=== PATIENT | female | born 1985 | race Caucasian/White ===

== ENCOUNTER 2019-07-13 01:13 | Inpatient (IN) | payer SELFPAY ==
[2019-07-13] MEDS ORDERED: XYLOCAINE 2% INFILTRATI ONE (02:17)
[2019-07-13] MEDS ORDERED: BRETHINE SUB-Q PRN (02:17)
--- NOTE | 2019-07-13 02:33 | History and Physical Report ---
History of Present Illness Date of examination: 07/13/19 Date of admission: 07/13/19 Chief complaint: Leaking of water. History of present illness: 34 year old presents complaining of leaking of pink fluid from vagina for past 5.5 hours. Patient denies falls or abdominal trauma. She denies recent IC. She reports contractions but denies constant abdominal pain. She reports active movement. She states fluid came with a gush and then continued to soak pads. No clear fluid, no green fluid. Patient received care at [facility] and records are available. LMP 10/13/18. EDC 07/20/19. significant for the following: low lying placenta (resolved per records), gestational thrombocytopenia, elevated 1 hour sugar test with one abnormal value on 3 hour OGTT, history of LEEP in January 2018. labs are as follows: O+, antibody screen negative, rubella immune, hepatitis B surface antigen negative, RPR nonreactive, HIV negative, + HPV on pap, quad screen negative, 1 hour sugar test 175, 3 hour OGTT with one abnormal value (90, 182, 144, 120), gonorrhea negative, chlamydia negative, GBS negative. Past History Past Medical History: no pertinent history Past Surgical History: no surgical history PARAMEDIC History: abnormal PAP smear. denies: chlamydia, gonorrhea, hepatitis B, hepatitis C, herpes, HIV, syphilis, trichomonas Family/Genetic History: diabetes Social history: lives with family, full code. denies: smoking, alcohol abuse, prescription drug abuse, IV drug use - Obstetrical History Expected Date of Delivery: 07/20/19 Actual Gestation: 39 Week(s) 0 Day(s) : 2 Para: 0 Hx # Term Pregnancies: 0 Number of Pregnancies: 0 Spontaneous Abortions: 0 Induced : 1 Number of Living Children: 0 Medications and Allergies Active Meds: Active Medications Ephedrine Sulfate (Ephedrine Sulfate) 10 mg IV Q2M PRN PRN Reason: Hypotension Oxytocin/Sodium Chloride (Pitocin/Ns 20 Unit/1000ml Drip) 20 units in 1,000 mls @ 125 mls/hr IV DIRECT RAMESH Lactated Ringer's (Lactated Ringers) 1,000 mls @ 125 mls/hr IV DIRECT RAMESH Lidocaine (Xylocaine 2%) 20 ml INFILTRATI ONCE ONE Stop: 07/13/19 02:18 Terbutaline Sulfate (Brethine) 0.25 mg SUB-Q ONCE PRN PRN Reason: Hyperstimulation/Hypertonicity Review of Systems All systems: negative (leaking of pink fluid from vagina, contractions) - Vital Signs Vital signs: Vital Signs Pulse BP 78 116/67 07/13/19 01:51 07/13/19 01:51 Temp Pulse Resp BP Pulse Ox 78 116/67 07/13/19 01:51 07/13/19 01:51 US report shows possible small separation of placenta, cephalic presentation, EFW 4363 grams. - Physical Exam Cardiovascular: Regular rate, Normal S1, Normal S2 Lungs: Positive: Clear to auscultation Abdomen: Positive: normal appearance. Negative: soft, distention, tenderness, guarding, rigidity Genitourinary (Female): Positive: normal external genitalia, normal perenium. Negative: perineal/vulvar lesions Vagina: Positive: other (SSE performed: positive pooling of pink to red fluid, positive nitrazine, positive fern) Uterus: Positive: enlarged (s>d). Negative: tender Anus/Rectum: Positive: normal perianal skin Extremities: Positive: normal, edema (mild pedal edema). Negative: tenderness - Obstetrical FHR: category 1 Uterine Contraction Monitor Mode: External Cervical Dilatation: 3 Cervical Effacement Percentage: 80 station: -3 Uterine Contraction Pattern: Irregular Uterine Contraction Intensity: Mild Results All other labs normal. Assessment and Plan A: at 39 weeks gestation. Spontaneous rupture of membranes with bloody fluid. GBS negative. History of low lying placenta. Possible small separation of placenta on US. EFW 4363 grams. P: Admit. Continuous EFM. Consult with Dr. Arriola. on his way in to deliver patient by section. Discussed POC with patient and family.
[2019-07-13] MEDS ORDERED: PITOCin/NS 20 UNIT/1000ML DRIP 20 UNITS/1,000 ML BAG IV SCH ×3 (03:00→07:00)
[2019-07-13] MEDS ORDERED: LACTATED RINGERS 1,000 ML IV SCH ×2 (03:00→04:00)
[2019-07-13] MEDS ORDERED: PEPCID IV ONE (03:29)
[2019-07-13] MEDS ORDERED: BICITRA PO ONE (03:29)
[2019-07-13] MEDS ORDERED: REGLAN IV ONE (03:29)
--- NOTE | 2019-07-13 03:52 | Ultrasound Report ---
ULTRASOUND OBSTETRIC LIMITED ULTRASOUND BIOPHYSICAL PROFILE INDICATION / CLINICAL INFORMATION: vaginal bleeding. COMPARISON: None available. FINDINGS: BREATHING MOVEMENT = 2 GROSS BODY MOVEMENT = 2 TONE = 2 QUALITATIVE AMNIOTIC FLUID VOLUME = 2 TOTAL BIOPHYSICAL SCORE = 8/8 AMNIOTIC FLUID INDEX (cm) = 12.2 PRESENTATION: Cephalic. HEART RATE (beats per minute): 143 ADDITIONAL FINDINGS: Placenta anterior, grade 3 without previa. Estimated gestational age based on BPD 39 weeks 5 days HC 40 weeks 6 days Femur length 38 weeks 3 days Estimated birthweight 4363 g IMPRESSION: 1. Biophysical Score = 8/8 Signer Name: Dioni Albright MD Signed: 07/13/2019 3:47 AM Workstation Name: [employer]
[2019-07-13] MEDS ORDERED: ANCEF/STERILE WATER 2 GM/20 ML 2 GM/20 ML SYRINGE IV NR (04:00)
[2019-07-13 04:01] LABS: Hematocrit 41.5 % (30.3-42.9); Hemoglobin 14.2 gm/dl (10.1-14.3); Mean Corpuscular HGB Conc 34 % (30-34); Mean Corpuscular Volume 89 fl (79-97); Red Blood Count 4.64 M/mm3 (3.65-5.03)
[2019-07-13 04:13] LABS: INR 0.91 (0.87-1.13)
[2019-07-13 04:14] LABS: Partial Thromboplastin Time 21.4 Sec. (24.2-36.6)
[2019-07-13 04:16] LABS: Platelet Count 90 K/mm3 (140-440)
--- NOTE | 2019-07-13 04:17 | Anesthesia Consultation ---
Anesthesia Consult and Med Hx Date of service: 07/13/19 - Airway Anesthetic Teeth Evaluation: Good ROM Head & Neck: Adequate Mental/Hyoid Distance: Adequate Mallampati Class: Class II Intubation Access Assessment: Probably Good - Pulmonary Exam CTA: Yes - Cardiac Exam Cardiac Exam: RRR - Pre-Operative Health Status ASA Pre-Surgery Classification: ASA2 Proposed Anesthetic Plan: General, Spinal - Pulmonary Hx Asthma: No - Cardiovascular System Hx Hypertension: No - Central Nervous System Hx Seizures: No Hx Psychiatric Problems: No - Endocrine Hx Renal Disease: No Hx Hypothyroidism: No Hx Hyperthyroidism: No - Hematic Hx Anemia: No Hx Sickle Cell Disease: No - Other Systems Hx Alcohol Use: No - Additional Comments Anesthesia Medical History Comments: possible small abruption
--- NOTE | 2019-07-13 04:18 | Anesthesia Day of Surgery ---
Anesthesia Day of Surgery - Day of Surgery Patient Examined: Yes Patient H&P Reviewed: Yes Patient is NPO: Yes (8 pm 07/12/2019)
[2019-07-13] MEDS ORDERED: ZOFRAN ONE (05:51)
[2019-07-13] MEDS ORDERED: MARCAINE 0.5% INFILTRATI ONE (05:51)
[2019-07-13] MEDS ORDERED: DEXMEDETOMIDINE IV ONE (05:51)
[2019-07-13] MEDS ORDERED: NEO SYNEPHRINE ONE (05:51)
[2019-07-13] MEDS ORDERED: WATER FOR IRRIG STERILE IR ONE (05:58)
[2019-07-13] MEDS ORDERED: NACL 0.9% IR ONE (05:58)
[2019-07-13] MEDS ORDERED: NARCAN 0.4 MG/1 ML IV PRN ×2 (06:45→06:58)
[2019-07-13] MEDS ORDERED: ZOFRAN IV PRN ×2 (06:45→06:58)
[2019-07-13] MEDS ORDERED: TYLENOL PO PRN (06:45)
[2019-07-13] MEDS ORDERED: TUCKS PAD TP PRN (06:45)
[2019-07-13] MEDS ORDERED: LANSINOH TP PRN (06:45)
--- NOTE | 2019-07-13 06:55 | Operative Report ---
Operative Report Operative Report: Date of procedure: 07/13/2019 Pre-operative diagnosis: 1. Intrauterine at 39 0/7 weeks 2. Low-l anne placenta with bleeding Post-operative diagnosis: Same Procedure name(s): Primary low transverse section Surgeon: Cornelio Arriola MD [employer] Architect: None Anesthesia: Spinal anesthesia by Gómez Clements CRNA EBL: 700 mL's Findings: A 4141 g male Apgars 8 at 1 minute and 9 at 5 minutes. Clear amniotic fluid. Normal uterus. Normal tubes and ovaries bilaterally. Procedure: After the patient was prepped and draped in usual sterile fashion, and after satisfactory level of epidural anesthesia was obtained, the skin knife was used to make a transverse skin incision. The incision was excised down to layer of the fascia, which was nicked in the midline and extended laterally using the Bovie cautery. The rectus muscles were dissected off the rectus fascia both superiorly and inferiorly. The rectus bellies in the midline, and the peritoneum was entered under direct visualization. The peritoneal incision was extended superiorly and inferiorly. A bladder flap was created and the bladder blade was then placed. The uterus was scored in a curvilinear linear fashion, entered in the midline revealing clear amniotic fluid. The infant's head was delivered onto the surgical field with the aid of a vacuum, and the oropharynx and nasopharynx were bulb suctioned. The rest of the 's body was delivered, cord was doubly clamped and cut and the infant was handed to the waiting respiratory team. Cord blood was then obtained. The placenta was manually removed from the uterus, and the uterus removed from its normal anatomical position. After gentle uterine lavage, the incision was inspected and found to be without extensions. It was then closed in 2 layers using 0 Vicryl suture in a running interlocking fashion, the second layer imbricating the first. After good hemostasis was achieved, copious amounts or irrigation was performed, and the gutters were suctioned free of blood and blood clots. The Tisseel sealant was sprayed across the uterine incision, and excellent hemostasis was assured. The uterus was then returned to its normal anatomical position, and after excellent hemostasis assured, the peritoneum was re-approximated using 3-0 Vicryl suture in a running interlocking fashion, and then the rectus muscles were re-approximated using 3-0 Vicryl suture in a [id number] configuration. The fascia was then re-approximated using 0 Vicryl suture in running interlocking fashion. The subcutaneous layer was made hemostatic using Bovie cautery, and the skin edges re-approximated using 4-0 Vicryl suture in a sub-cuticular fashion. Patient tolerated the procedure well was transported to recovery in stable condition.
[2019-07-13] MEDS ORDERED: PHENERGAN PO PRN (06:58)
[2019-07-13] MEDS ORDERED: NUBAIN IV PRN (06:58)
[2019-07-13] MEDS ORDERED: PHENERGAN PR PRN (06:58)
--- NOTE | 2019-07-13 06:58 | Post Anesthesia Evaluation ---
- Post Anesthesia Evaluation Patient Participated: Yes Airway Patent: Yes Stable Respiratory Function: Yes Nausea/Vomiting: No Temp > 96.8F: Yes Pain Manageable: Yes Adequeate Hydration: Yes Anesthesia Complications: No Block Receding Appropriately: Yes
[2019-07-13] MEDS ORDERED: SODIUM CHLORIDE FLUSH SYRINGE 10 ML IV PRN (07:00)
[2019-07-13] MEDS ORDERED: D5LR 1,000 ML IV SCH (07:00)
[2019-07-13] MEDS: ANCEF/NS 1 GM/50 ML 1 GM/50 ML BAG IV SCH ×2 (12:55→20:51)
[2019-07-13] MEDS: TORADOL IV PRN ×2 (13:05→18:22)
[2019-07-13 21:26] LABS: Hematocrit 34.3 % (30.3-42.9); Hemoglobin 11.4 gm/dl (10.1-14.3)
[2019-07-13] MEDS ORDERED: MILK OF MAGNESIA PO PRN (22:00)
[2019-07-13] MEDS ORDERED: SENOKOT PO PRN (22:00)
[2019-07-13] MEDS ORDERED: MYLICON PO PRN (22:00)
[2019-07-13] MEDS: PERCOCET 5/325 PO PRN (23:43)
[2019-07-14] MEDS: PERCOCET 5/325 PO PRN ×2 (05:38→17:35)
[2019-07-14] MEDS ORDERED: BOOSTRIX IM ONE (06:00)
[2019-07-14] MEDS ORDERED: M-M-R II VACCINE SUB-Q ONE (06:46)
--- NOTE | 2019-07-14 09:55 | Progress Note ---
Assessment and Plan - Patient Problems (1) Status post primary low transverse section Current Visit: Yes Status: Acute Plan to address problem: Continue routine PP orders Keep incision dry and clean Anticipate d/c home in 48 hrs Subjective - Subjective Date of service: 07/14/19 Principal diagnosis: S/P Primary C/S Interval history: See admission H & P, OB operative summary and PP progress notes Patient reports: appetite normal, voiding normally, pain well controlled (with medications), flatus, ambulating normally, no bowel movement [place]: doing well, bottle feeding (and ) Objective - Vital Signs Latest vital signs: Vital Signs Temp Pulse Resp BP BP Pulse Ox 07/14/19 07:34 98.3 F 76 18 96/62 07/14/19 05:38 20 07/14/19 05:06 97.9 F 78 20 109/65 97 07/14/19 01:44 98.8 F 82 18 99/55 96 07/13/19 23:43 20 07/13/19 20:44 98.2 F 88 16 100/64 99 07/13/19 16:59 98.1 F 85 18 86/52 07/13/19 12:18 98.2 F 89 18 93/57 Intake and Output 07/13/19 07/14/19 07/14/19 23:59 07:59 15:59 Intake Total 720 720 Output Total 1400 300 Balance -680 420 Intake: Oral 480 480 Intake, Free Water 240 240 Output: Urine 1400 300 Indwelling Catheter 1400 Void 300 Other: Total, Intake Amount 480 480 Total, Output Amount 1400 300 # Voids Void 1 - Exam Breasts: Present: normal Cardiovascular: Present: Regular rate Lungs: Present: Normal air movement Abdomen: Present: soft, tenderness Uterus: Present: firm, fundal height below umbilicus (U-1) Extremities: Present: normal Deep Tendon Reflex Grade: Normal +2 Incision: Present: dressed (no shawdow drainage or bleeding noted)
[2019-07-14] MEDS: NORCO 5/325 PO PRN ×2 (10:14→21:38)
[2019-07-14] MEDS: FEOSOL PO SCH (10:14)
[2019-07-14] MEDS: PRENATAL VITAMIN PO SCH (10:14)
[2019-07-14] MEDS: IBUPROFEN PO PRN ×2 (10:15→17:35)
[2019-07-15] MEDS: NORCO 5/325 PO PRN (05:10)
[2019-07-15] MEDS: FEOSOL PO SCH (09:46)
[2019-07-15] MEDS: PERCOCET 5/325 PO PRN ×2 (09:46→14:57)
[2019-07-15] MEDS: PRENATAL VITAMIN PO SCH (09:46)
--- NOTE | 2019-07-15 12:06 | Progress Note ---
Assessment and Plan A: POD #2 Stable P: Follow Routine PostOp Orders D/C Home in the AM RTO in One Week Subjective - Subjective Date of service: 07/15/19 Principal diagnosis: S/P Primary C/S Patient reports: appetite normal, voiding normally, pain well controlled, flatus, ambulating normally : doing well, bottle feeding Objective - Vital Signs Latest vital signs: Vital Signs Temp Pulse Resp BP Pulse Ox 07/15/19 08:00 98.5 F 76 20 98/54 07/15/19 06:10 18 07/15/19 05:10 18 07/15/19 01:16 98.8 F 87 15 93/55 98 07/14/19 22:38 18 07/14/19 21:38 18 07/14/19 16:07 98.4 F 77 18 101/64 Intake and Output 07/14/19 07/15/19 07/15/19 22:59 06:59 14:59 Intake Total 840 480 360 Output Total 400 Balance 440 480 360 Intake: Oral 480 360 Intake, Free Water 360 480 Output: Urine 400 Void 400 Other: Total, Intake Amount 480 360 Total, Output Amount 400 # Voids Void 1 1 - Exam Breasts: Present: normal Cardiovascular: Present: Regular rate Lungs: Present: Clear to auscultation, Normal air movement Abdomen: Present: normal appearance, soft, normal bowel sounds Uterus: Present: normal, firm, fundal height below umbilicus Extremities: Present: normal Incision: Present: normal, dry, intact
--- NOTE | 2019-07-15 12:08 | Discharge Summary ---
Providers - Providers Date of Admission: 07/13/19 03:09 Date of discharge: 07/16/19 Attending physician: MCKAYLA LARA MD Primary care physician: MCKAYLA LARA MD Hospitalization Reason for admission: vaginal bleeding, rupture of membranes Delivery: Procedure: primary low transverse Episiotomy: none Laceration: none Incision: normal, dry, intact Other procedures: none complications: none Discharge diagnosis: IUP at term delivered [place] baby: male Condition at discharge: Good Disposition: DC-01 TO HOME OR SELFCARE Plan - Discharge Medications Prescriptions: Ferrous Sulfate [Feosol 325 MG tab] 325 mg PO BID #60 tablet Ibuprofen [Motrin] 800 mg PO Q8HR PRN #30 tablet PRN Reason: Pain, Mild (1-3) HYDROcodone/APAP 5-325 [[place] 5/325] 1 each PO Q6HR PRN #30 tablet PRN Reason: Pain Vit-Fe Fumar-FA [ Vitamin] 1 tab PO QDAY #30 tablet - Provider Discharge Summary Activity: routine, no sex for 6 weeks, no heavy lifting 4 weeks, no strenuous exercise Diet: routine Instructions: routine Additional instructions: [] Smoking cessation referral if applicable(refer to patient education folder for contact #) [] Refer to [facility]'s [facility] Booklet Call your doctor immediately for: * Fever > 100.5 * Heavy vaginal bleeding ( >1 pad per hour) * Severe persistent headache * Shortness of breath * Reddened, hot, painful area to leg or breast * Drainage or odor from incision. * Keep incision clean and dry at all times and follow doctor's instructions regarding bathing/showering - Follow up plan Follow up: MCKAYLA LARA MD [Primary Care Provider] - 7 Days
[2019-07-15] MEDS: IBUPROFEN PO PRN (17:07)
[2019-07-16] MEDS: IBUPROFEN PO PRN ×2 (00:59→11:43)
[2019-07-16] MEDS: NORCO 5/325 PO PRN (10:24)
[2019-07-16] MEDS: PRENATAL VITAMIN PO SCH (10:25)
[2019-07-16 12:24] VITALS: BP 110/77
== END 2019-07-16 12:30 | disposition home or self-care (01) | DRG 787 ==
LOC: TRG 01:13 → LD 03:09 → OB 08:26
PROVIDERS: ADMIT Obstetrics & Gynecology; ATTEND Obstetrics & Gynecology
PROC: 10D00Z1 Extraction of Products of Conception, Low, Open Approach (ICD-10-PCS; principal; 2019-07-13)
PROC: 3E0234Z Introduction of Serum, Toxoid and Vaccine into Muscle, Percutaneous Approach (ICD-10-PCS; 2019-07-14)
DX: O44.53 Low lying placenta with hemorrhage, third trimester (principal); O99.12 Other diseases of the blood and blood-forming organs and certain disorders involving the immune mechanism complicating childbirth; D69.6 Thrombocytopenia, unspecified; Z3A.39 39 weeks gestation of pregnancy; Z37.0 Single live birth; Z83.3 Family history of diabetes mellitus; Z23 Encounter for immunization
CPT/HCPCS: 36415; 76816; 76819; 85014; 85018; 85027; 85384; 85610; 85730; 86592; 86850; 86900; 86901; G0378; C9250; J0690; J1885; J2370; J2405; J2590; J2765; J3490; J7120; J7121